=== PATIENT | female | born 1935 | race Caucasian/White ===

== ENCOUNTER 2016-11-03 14:18 | Emergency (ER) | payer BC | END 2016-11-03 19:03 | disposition home or self-care (01) | LOC: ER 14:18 | DX: S09.90XA Unspecified injury of head, initial encounter (principal); S42.212A Unspecified displaced fracture of surgical neck of left humerus, initial encounter for closed fracture; E11.9 Type 2 diabetes mellitus without complications; Z88.5 Allergy status to narcotic agent; W19.XXXA Unspecified fall, initial encounter | CPT/HCPCS: 70450; 73030-LT; 96372; 99284 ==